=== PATIENT | female | born 1985 | race Caucasian/White ===

== ENCOUNTER 2016-10-03 23:15 | Emergency (ER) | payer OTHER ==
--- NOTE | ~2016-10-03 | CR253 ---
[facility]. [facility] A Service of [facility] & [facility] RADIOLOGY TEXT RESULTS PATIENT: DEISY RUIZ LOCATION: SED : 87 UNIT #: [id number] AGE: [address]: Sriram Soliman MD SEX: F ORDER DR: [id number] [address] [address] [id number] E MR#: [id number] Acc #: [id number] NAME: DEISY RUIZ : 1985 SEX: F STUDY DATE/TIME: 10/03/2016 23:45 UNIT: SED ROOM: STUDY DESCRIPTION: CR Tibia and Fibula 2 Views Rt Attending Physician: Sriram Soliman M.D. Ordering Physician: Sriram Soliman M.D. Primary Care Physician: Shon Paredes M.D. MEDICAL IMAGING REPORT This report is preliminary unless electronic signature is present. EXAM Right tibia and fibula INDICATION Pain after trauma. Patient fell on trampoline today. FINDINGS There is no evidence of fracture, dislocation, or radiopaque foreign body. IMPRESSION Normal tibia and fibula. Dictated by... James Serna M.D. THIS IS AN ELECTRONICALLY VERIFIED REPORT James Serna M.D. at 10/05/2016 5:00 AM ORQUIDEA/stefany TD: 10/05/2016 00:52 JOB #: [id number] MEDICAL IMAGING REPORT Page 1 of 1
[~2016-10-03 23:15] MED LIST: ALBUTEROL17 GM INH; ANTIBIOTIC; BACTRIM DS TABL1 TAB PO; DICLOFENAC PO; DULERA 200 MCG/13 GM INH; FLEXERIL PO; GERITOL PO; MACROBID100 MG PO; MACRODANTIN PO; MOTRIN600 M1 PO; NO MEDICATIONS; PREDNISONE PO; PRENATAL MULITV1 TAB PO; TYLOX 5/500 CAP1 CAP PO; YASMIN 28 TABLE1 TAB PO; ZOFRAN8 MG PO
== END 2016-10-04 00:29 | disposition home or self-care (01) ==
LOC: SED 23:15
DX: S83.411A Sprain of medial collateral ligament of right knee, initial encounter (principal); S83.421A Sprain of lateral collateral ligament of right knee, initial encounter; Z79.899 Other long term (current) drug therapy; W17.89XA Other fall from one level to another, initial encounter; Y93.89 Activity, other specified; Y92.009 Unspecified place in unspecified non-institutional (private) residence as the place of occurrence of the external cause
CPT/HCPCS: 73590; 99283